=== PATIENT | male | born 1965 | race Hispanic/Latino ===

== ENCOUNTER 2024-12-17 19:30 | Emergency (ER) | payer OTHER ==
[~2024-12-17] VITALS: Ht 180.3 cm; Wt 78.0 kg
--- NOTE | 2024-12-17 19:33 | ERN ---
General Chief Complaint: Eye Problems Stated Complaint: EYE, NOSE INJURY Time Seen by MD: 19:33 Source: patient History of Present Illness Initial Comments This is a 59-year-old male who had a counter top trapdoor fall against his face creating a tear to the skin underneath his right eye and the bridge of his right nose. It happened at work and he was [facility] The doctor there felt the patient did not need stitches however the physician there felt that the patient needed a head CT scan to rule out any orbital fractures. The patient is here to get a head CT scan. Allergies: Coded Allergies: No Known Allergies (Unverified Allergy, Unknown, 12/17/24) Past Medical History Past Medical History: No Pertinent History Constitutional: (-) chills, (-) diaphoresis, (-) fever, (-) malaise, (-) weakness, (-) other documentation EENTM: (-) eye pain, (-) blurred vision, (-) tearing, (-) double vision, (-) ear pain, (-) ear discharge, (-) nose pain, (-) nose congestion, (-) throat pain, (-) Throat swelling, (-) mouth pain, (-) tooth pain, (-) mouth swelling, (-) other documentation Respiratory: (-) cough, (-) orthopnea, (-) short of breath, (-) stridor, (-) wheezing, (-) other documentation Cardiovascular: (-) chest pain, (-) edema, (-) palpitations, (-) syncope, (-) dyspnea on exertion, (-) other documentation Gastrointestinal/Abdominal: (-) nausea, (-) vomiting, (-) diarrhea, (-) abdominal pain, (-) abdominal distention, (-) constipation, (-) rectal bleeding, (-) dark stool/melena, (-) other documentation Musculoskeletal: (-) Neck pain, (-) back pain, (-) Flank Pain, (-) joint pain, (-) joint swelling, (-) muscle pain, (-) muscle stiffness, (-) gout, (-) other documentation Physical Exam General Appearance: (+) no apparent distress Orientation: (+) alert, (+) oriented x 3 Head/Face Trauma: Yes Face Comment Patient does have superficial tears to the skin underneath his right eye and on the right side of the bridge bridge of his nose. Wounds are uninfected and are consistent with the patient's history both in terms of age and depth. Eye: bilateral eye normal inspection, bilateral eye PERRL, bilateral eye EOMI Eyes Comment Patient has no double vision, no decrease in visual acuity, all visual dougherty intact, no evidence of muscle entrapment. MDM I will order an CT scan of the patient's orbits. CT scan of the patient's maxillofacial series is negative for any nasal fractures or dislocations or cartilaginous injuries. Patient's orbital CT scan is also negative for any fractures. Patient's visual acuity is at baseline he has no defects in his vision in his right eye and no sensation of any foreign bodies or irritation in his right eye. The wounds have been cleaned by the nurse and they are extremely superficial they will heal with just bacitracin ointment. I explained this to the patient. ED Course Orders Procedure Category Date Status Time Ct Orb/Tiera/Ear W/O CT 12/17/24 Resulted Contrast 19:41 Ct Maxillofacial W/O CT 12/17/24 Resulted Contrast 19:41 Diph,Pertuss(Acell),Tet PHA 12/17/24 Complete Vac/Pf (Tdap) 20:30 Current Medications Medications (Trade) Dose Ordered Sig/Vesta Route PRN Reason Start Time Stop Time Status Last Admin Dose Admin Diphtheria/ Tetanus/Acell Pertussis (Tdap) 0.5 ml ONCE ONCE IM 12/17/24 20:30 12/17/24 20:31 DC Vital Signs Date Time Temp Pulse Resp B/P (MAP) Pulse Ox O2 Delivery O2 Flow Rate FiO2 12/17/24 19:32 98.2 62 18 131/80 100 Room Air DX & DISP Disposition: Discharge Departure Impression: Primary Impression: Laceration of face Condition: Stable Additional Instructions: Please return if you have any changes in your vision or feeling of a foreign body or pain in her right eye. Also return if you have any increase in swelling redness or discharge that might indicate an infection. KENY MCGOWAN MD December 17, 2024 19:33
[2024-12-17] MEDS ORDERED: DIPH,PERTUSS(ACELL),TET VAC/PF 0.5 ML VIAL IM ONE (20:30)
--- NOTE | 2024-12-17 20:34 | HMCIMG ---
CT MAXILLOFACIAL W/O CONTRAST HISTORY: Right eye trauma COMPARISON: None TECHNIQUE: Multiple sequential high-resolution axial images of the paranasal sinuses were obtained. Postprocessing sagittal and coronal reconstruction images were also obtained. Patient was not given contrast through intravenous route. FINDINGS: Nasal septum is deviated towards the left. There right periorbital soft tissue swelling is seen. Is no evidence of mucoperiosteal thickening involving the paranasal sinuses. The infundibula are patent bilaterally. No acute displaced fracture is seen. There is no evidence of air-fluid level in the paranasal sinuses. Parapharyngeal fat planes are preserved bilaterally. IMPRESSION: 1. No acute displaced fracture is seen. CT was performed with one or more following dose reduction techniques: automated exposure control, adjustment of the mA and kv according to patient's size, or use of a iterative reconstruction technique.
--- NOTE | 2024-12-17 20:44 | HMCIMG ---
CT ORB/LIGIA/EAR W/O CONTRAST HISTORY: Right eye trauma COMPARISON: None TECHNIQUE: Multiple sequential high-resolution axial images of the orbits were obtained. Postprocessing sagittal and coronal reconstruction images were also obtained. Patient was not given contrast through intravenous route. FINDINGS: No evidence of intraconal or extraconal mass is seen. Nasoseptal deviation towards left is seen. No acute displaced fracture is seen. Right periorbital soft tissue swelling is seen. IMPRESSION: 1. No evidence of intraconal or extraconal mass is seen. No acute displaced fracture is seen. Right periorbital soft tissue swelling is seen. CT was performed with one or more following dose reduction techniques: automated exposure control, adjustment of the mA and kv according to patient's size, or use of a iterative reconstruction technique.
[2024-12-17 20:45] VITALS: BP 127/65; PULSE 62; RESP 16; TEMP 98.2; O2SAT 98
[2024-12-17] MEDS ORDERED: teTANUS/diphthERIA TOXOID [ADULT] 0.5 ML VIAL IM ONE (21:08)
[2024-12-17] MEDS: teTANUS/diphthERIA TOXOID [ADULT] 0.5 ML VIAL IM ONE (21:15)
== END 2024-12-17 22:21 | disposition home or self-care (01) ==
LOC: EDH 19:30
DX: S01.81XA Laceration without foreign body of other part of head, initial encounter (principal); W18.39XA Other fall on same level, initial encounter; Y93.89 Activity, other specified; Y92.89 Other specified places as the place of occurrence of the external cause; Y99.8 Other external cause status
CPT/HCPCS: 70480; 70486; 90471; 90714; 90715; 99285